=== PATIENT | female | born 1980 | race African-American/Black ===

== ENCOUNTER 2018-04-04 00:16 | Emergency (ER) | payer OTHER ==
--- NOTE | 2018-04-04 01:02 | RADIOLOGY REPORT (SQ) ---
EXAM DESCRIPTION: XR FOOT 3 OR MORE VIEWS COMPLETED DATE/TME: 04/04/2018 00:00 CLINICAL HISTORY: 37 years, Female, Pain s/p injury COMPARISON: None. FINDINGS: 3 views of the left foot. Acute minimally displaced avulsion fracture involving the proximal apophysis of the left fifth metatarsal. Normal osseous mineralization. Lateral soft tissue edema. IMPRESSION: 1. Acute minimally displaced avulsion fracture involving the proximal left fifth metatarsal. 2011 [employer]- All Rights Reserved
[2018-04-04] MEDS ORDERED: ACETAMINOPHEN 325 MG TABLET PO ONE (01:30)
[2018-04-04] MEDS ORDERED: IBUPROFEN 600 MG TABLET PO ONE (01:30)
--- NOTE | 2018-04-04 02:31 | ER Document Report ---
ED General - General Chief Complaint: Foot Injury Stated Complaint: LT FOOT INJURY Time Seen by Provider: 04/04/18 01:29 Notes: Patient is a 37-year-old female without chronic medical problems who presents with left foot pain. Patient states that she missed a step landing abnormally on her left foot. She states she immediately developed a severe, throbbing, constant pain since that time that has remained persistent. Nothing has improved the pain. Any attempt at walking or touching the area dramatically worsens the pain. No history of similar injury in the past. She denies any additional injuries or concerns today. She has not seen her general doctor regarding today's concerns. TRAVEL OUTSIDE OF THE [place] IN LAST 30 DAYS: No - Related Data Allergies/Adverse Reactions: ceftriaxone [From Rocephin] Allergy (Verified 04/04/18 00:20) Past Medical History - General Information source: Patient - Social History Smoking Status: Never Smoker Frequency of alcohol use: None Drug Abuse: None Lives with: Spouse/Significant other Family History: Reviewed & Not Pertinent Patient has suicidal ideation: No Patient has homicidal ideation: No Renal/ Medical History: Denies: Hx Peritoneal Dialysis Review of Systems - Review of Systems Notes: Constitutional: Negative for fever. Eyes: Negative for visual changes. ENT: Negative for facial injury Cardiovascular: Negative for chest injury. Respiratory: Negative for shortness of breath. Gastrointestinal: Negative for abdominal injury. Genitourinary: Negative for genital injury Musculoskeletal: Positive for left foot injury Skin: Negative for laceration/abrasions. Neurological: Negative for head injury. Physical Exam - Vital signs Vitals: Temp Pulse BP Pulse Ox 98.6 F 62 104/52 L 98 04/04/18 01:21 04/04/18 01:21 04/04/18 01:21 04/04/18 01:21 Interpretation: Normal Notes: PHYSICAL EXAMINATION: GENERAL: Well-appearing, well-nourished and in no acute distress. HEAD: Atraumatic, normocephalic. EYES: sclera anicteric, conjunctiva are normal. ENT: Moist mucous membranes. NECK: Normal range of motion LUNGS: Normal work of breathing HEART: 2+ DP pulse to the left foot. EXTREMITIES: no pitting or edema. No cyanosis. NEUROLOGICAL: No focal neurological deficits. Moves all extremities spontaneously and on command. PSYCH: Normal mood, normal affect. SKIN: Warm, Dry, normal turgor, ecchymosis and swelling to the lateral central foot along both the plantar and dorsal surfaces. Exquisite pain on palpation of the affected area. Course - Re-evaluation Re-evalutation: 04/04/18 02:27 Patient presents with pain and swelling to the base of her fifth metatarsal after falling down a step. She did not sustain any additional injuries. X-ray does show findings consistent with 1/5 metatarsal fracture although this is not a Mendoza fracture that would warrant immobilization. I did call and confirmed with the radiologist this is not a Mendoza fracture. Patient has been placed in a walking shoe and given crutches. Weightbearing as tolerated. I have recommended orthopedic follow-up. At this time will discharge with return precautions and follow-up recommendations. Verbal discharge instructions given a the bedside and opportunity for questions given. Medication warnings reviewed. Patient is in agreement with this plan and has verbalized understanding of return precautions and the need for primary care follow-up in the next 24-72 hours. - Vital Signs Vital signs: Temp Pulse Resp BP Pulse Ox 98.6 F 62 104/52 L 98 04/04/18 01:21 04/04/18 01:21 04/04/18 01:21 04/04/18 01:21 - Diagnostic Test Radiology reviewed: Image reviewed, Reports reviewed Radiology results interpreted by me: 04/04/18 02:28 Left foot x-ray: Fracture of the fifth metatarsal Discharge - Discharge Clinical Impression: Fracture of fifth metatarsal bone Qualifiers: Encounter type: initial encounter Fracture type: closed Fracture alignment: nondisplaced Laterality: left Qualified Code(s): S92.355A - Nondisplaced fracture of fifth metatarsal bone, left foot, initial encounter for closed fracture Condition: Good Disposition: HOME, SELF-CARE Additional Instructions: Your x-ray does show that you have a fracture of 1 of the bones in your foot. You need to follow-up closely with orthopedic surgery to monitor for resolution of this fracture. Use crutches as needed although you can bear weight if it is not extremely painful. For your pain: Take ibuprofen 600 mg and acetaminophen 1000 mg every 6 hours together as needed for pain. Return to the emergency department if you have worsening pain, fever, weakness, or any other symptoms that are worrisome to you.
[2018-04-04 03:11] VITALS: BP 108/63
== END 2018-04-04 03:11 | disposition home or self-care (01) ==
LOC: ER 00:16
DX: S92.355A Nondisplaced fracture of fifth metatarsal bone, left foot, initial encounter for closed fracture (principal); W10.9XXA Fall (on) (from) unspecified stairs and steps, initial encounter; Z88.1 Allergy status to other antibiotic agents
CPT/HCPCS: 99283